=== PATIENT | female | born 1995 | race African-American/Black ===

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

== ENCOUNTER 2017-11-08 23:22 | Emergency (ER) | payer MEDICAID ==
[~2017-11-08] VITALS: Ht 162.6 cm; Wt 80.0 kg
[~2017-11-08 23:22] MED LIST: AMOX500C PO; BIRTH CONTROL PILLS; IBUP1TAB7 PO; MOME17I EACH NARE
[2017-11-08 23:24] VITALS: BP 152/99; PULSE 89; RESP 16; TEMP 98.2; O2SAT 99
[2017-11-08] MEDS ORDERED: blood pressure med PO (23:41)
[2017-11-08] MEDS ORDERED: muscle relaxer PO (23:41)
--- NOTE | 2017-11-09 00:06 | PD ---
HPI Chief Complaint: Chest Pain Time Seen by Provider: 23:52 Travel History International Travel<30 days: No Contact w/Intl Traveler<30days: No Traveled to known affect area: No History of Present Illness HPI 21-year-old female complained of chest pain. Patient states that she has intermittent chest pain for the past 2 days. Patient states that the chest pain is pressure pain localized to the left chest. Patient denies any pain radiation. Patient denies palpitation nausea or diaphoresis. Patient denies any coughing congestion fever chills. Patient denies a history of CAD. Patient denies family history of CAD early in life. Patient denies history hypertension, diabetes, hyperlipidemia. Patient is not a smoker. Patient denies any illicit drug abuse. On a scale of 1-10 the pain as a 5. PFSH Past Medical History Hypertension: Yes ?: Not Past Surgical History Surgical History: No Previous Surgery Social History Alcohol Use: Yes Tobacco Use: Yes Substance Use: Yes (marijuana) Allergies-Medications (Allergen,Severity, Reaction): Coded Allergies: No Known Allergies (Unverified Adverse Reaction, Unknown, 11/08/17) Reported Meds & Prescriptions Reported Meds & Active Scripts Active Reported [muscle relaxer] PO [blood pressure med] 5 Mg PO DAILY Review of Systems General / Constitutional: No: Fever Eyes: No: Visual changes HENT: No: Headaches Cardiovascular: Positive: Chest Pain or Discomfort Respiratory: No: Shortness of Breath Gastrointestinal: No: Abdominal Pain Genitourinary: No: Dysuria Musculoskeletal: No: Pain Skin: No Rash Neurologic: No: Weakness Psychiatric: No: Depression Endocrine: No: Polydipsia Hematologic/Lymphatic: No: Easy Bruising Physical Exam Narrative GENERAL: Well-nourished, well-developed patient. SKIN: Focused skin assessment warm/dry. HEAD: Normocephalic. EYES: No scleral icterus. No injection or drainage. NECK: Supple, trachea midline. No JVD or lymphadenopathy. CARDIOVASCULAR: Regular rate and rhythm without murmurs, gallops, or rubs. RESPIRATORY: Breath sounds equal bilaterally. No accessory muscle use. GASTROINTESTINAL: Abdomen soft, non-tender, nondistended. MUSCULOSKELETAL: No cyanosis, or edema. BACK: Nontender without obvious deformity. No CVA tenderness. Neurologic exam normal. Data Data Last Documented VS Vital Signs Date Time Temp Pulse Resp B/P (MAP) Pulse Ox O2 Delivery O2 Flow Rate FiO2 11/08/17 23:24 98.2 89 16 152/99 (116) 99 Orders Orders Electrocardiogram (11/08/17 23:58) Chest, Single Ap (11/08/17 23:58) Ed Discharge Order (11/09/17 00:47) MDM Medical Decision Making Medical Screen Exam Complete: Yes Emergency Medical Condition: Yes Interpretation(s) 12:48 AM. Chest x-ray shows no acute process. EKG shows sinus rhythm nonspecific ST-T wave change. Differential Diagnosis Differential diagnoses including angina, OK, PE, pneumothorax. Narrative Course 21-year-old female with left-sided chest pain. Diagnosis Primary Impression: Atypical chest pain Patient Instructions: General Instructions Additional Instructions: Tylenol Advil for pain. Follow-up with personal physician. Return if worse. Return if increasing chest pain shortness of breath. Med/Other Pt SpecificInfo: No Meds Exist/No RX given Disposition: 01 DISCHARGE HOME Condition: Stable Tolu Taylor MD Nov 09, 2017 00:06
--- NOTE | 2017-11-09 00:43 | RADRPT ---
EXAM DATE/TIME: 11/09/2017 00:25 [place] COMPARISON: No previous studies available for comparison. INDICATIONS : Short of breath. Chest pains to left side of chest. MEDICAL HISTORY : None. SURGICAL HISTORY : None. ENCOUNTER: Initial ACUITY: 1 day PAIN SCORE: 4/10 LOCATION: Bilateral chest FINDINGS: A single view of the chest demonstrates the lungs to be symmetrically aerated without evidence of mas s, infiltrate or effusion. The cardiomediastinal contours are unremarkable. Osseous structures are intact. CONCLUSION: Normal examination. Mati Abraham MD on November 09, 2017 at 0:40 Board Certified Radiologist. This report was verified electronically.
--- NOTE | 2017-11-09 09:42 | EKG ---
Date Performed: 11/09/2017 Time Performed: 00:32:22 PTAGE: 21 years EKG: Sinus rhythm WITH SINUS ARRHYTHMIA POSSIBLE LEFT ATRIAL ENLARGEMENT POSSIBLE LEFT VENTRICULAR HYPERTROPHY ABNORMA L ECG NO PREVIOUS TRACING DOCTOR: Tyson Mccain Interpretating Date/Time 11/09/2017 09:41:23
== END 2017-11-09 01:09 | disposition home or self-care (01) ==
LOC: NEPD 23:22
DX: R07.89 Other chest pain (principal); I10 Essential (primary) hypertension; F12.90 Cannabis use, unspecified, uncomplicated; Z72.0 Tobacco use
CPT/HCPCS: 71045; 93005; 99284